=== PATIENT | female | born 1990 | race Two or more races ===

== ENCOUNTER 2016-11-08 14:04 | Inpatient (IN) | payer MEDICAID, OTHER ==
[~2016-11-08] VITALS: Ht 180.3 cm; Wt 124.5 kg
[2016-11-08 14:54] LABS: DAU SCREEN DISCLAIMER
[2016-11-08] MEDS ORDERED: OXYTOCIN 30U/ 0.9% NaCL 500ML 500 ML IV ONE (15:36)
[2016-11-08] MEDS ORDERED: OXYTOCIN 30U/ 0.9% NaCL 500ML 500 ML IV PRN (15:36)
[2016-11-08] MEDS: D5%-LACTATED RINGERS 1,000 ML IV SCH ×2 (15:36→23:36)
[2016-11-08] MEDS ORDERED: LIDOCAINE 1%, 20ML ONE (15:44)
[2016-11-08] MEDS ORDERED: OXYTOCIN 30U/ 0.9% NaCL 500ML 500 ML ONE (15:44)
[2016-11-08] MEDS ORDERED: MISOPROSTOL 200 MCG TABLET ONE (15:44)
[2016-11-08] MEDS ORDERED: NEWBORN KIT ONE (15:44)
[2016-11-08] MEDS: LACTATED RINGERS 1,000 ML IV SCH ×3 (15:58→23:57)
[2016-11-08] MEDS ORDERED: FENTANYL PF 100 MCG/2ML IV PRN (16:00)
[2016-11-08] MEDS ORDERED: METOCLOPRAMIDE 5 MG/ML, 2ML IVPush PRN (16:00)
[2016-11-08] MEDS ORDERED: TERBUTALINE 1 MG/ML, 1ML IVPush PRN (16:00)
[2016-11-08] MEDS ORDERED: SODIUM CITRATE/CITRIC ACID 30 ML UDC PO PRN (16:00)
[2016-11-08] MEDS ORDERED: ONDANSETRON 2MG/ML, 2ML IVPush PRN (16:00)
[2016-11-08 16:12] LABS: HEMATOCRIT 39.6 % (34.6-47.8); WHITE BLOOD COUNT 10.3 x10^3/uL (3.4-10)
[2016-11-08] MEDS ORDERED: TERBUTALINE 1 MG/ML, 1ML ONE (16:13)
[2016-11-08] MEDS ORDERED: MISOPROSTOL 25 MCG TABLET ONE (17:08)
[2016-11-08] MEDS ORDERED: MISOPROSTOL 25 MCG TABLET VG PRN (17:30)
[2016-11-08] MEDS ORDERED: PREN1TAB69 PO (18:16)
[2016-11-08] MEDS ORDERED: FENTANYL PF 100 MCG/2ML ONE ×2 (21:42→23:18)
[2016-11-08] MEDS: FENTANYL PF 100 MCG/2ML IVPush PRN ×2 (21:50→23:20)
[2016-11-08] MEDS ORDERED: FENTANYL/BUPIV./NS/PF 250 ML EPIDCONT ONE (23:54)
[2016-11-08] MEDS ORDERED: BUPIVACAINE/PF 0.25% ONE (23:54)
[2016-11-08] MEDS ORDERED: FENTANYL/BUPIV./NS/PF 250 ML EPIDCONT SCH (23:57)
[2016-11-09] MEDS ORDERED: EPHEDRINE 50 MG/ML, 1ML IVPush PRN
[2016-11-09] MEDS ORDERED: LACTATED RINGERS 1,000 ML IVBOLUS PRN
[2016-11-09] MEDS ORDERED: NALOXONE 0.4 MG/ML, 1ML IVPush PRN
[2016-11-09] MEDS: LACTATED RINGERS 1,000 ML IV SCH ×6 (00:31→23:57)
[2016-11-09] MEDS: VANCOMYCIN PMX 1GM/200ML 200 ML IVPB SCH ×3 (04:42→16:31)
[2016-11-09] MEDS: D5%-LACTATED RINGERS 1,000 ML IV SCH ×3 (07:36→23:36)
[2016-11-09] MEDS ORDERED: OXYTOCIN 30U/ 0.9% NaCL 500ML 500 ML IV PRN (10:15)
[2016-11-09] MEDS ORDERED: LACTATED RINGERS 1,000 ML INTUTE PRN (16:00)
[2016-11-09] MEDS ORDERED: FENTANYL/BUPIV./NS/PF 250 ML EPIDCONT ONE (17:46)
[2016-11-09] MEDS ORDERED: METHYLERGONOVINE 0.2 MG/ML IM ONE (20:17)
[2016-11-09] MEDS ORDERED: OXYTOCIN 30U/ 0.9% NaCL 500ML 500 ML ONE (20:40)
[2016-11-09] MEDS: OXYTOCIN 30U/ 0.9% NaCL 500ML 500 ML IV SCH (21:17)
[2016-11-09] MEDS ORDERED: ONDANSETRON 2MG/ML, 2ML IV PRN (21:30)
[2016-11-09] MEDS ORDERED: METHYLERGONOVINE 0.2 MG/ML IM PRN (21:30)
[2016-11-09] MEDS ORDERED: MISOPROSTOL 200 MCG TABLET PR PRN (21:30)
[2016-11-09] MEDS: IBUPROFEN 600 MG TABLET PO PRN (23:35)
[2016-11-10] MEDS: HYDROcodone/APAP 5/325 TABLET PO PRN ×5 (01:23→20:38)
[2016-11-10 01:24] VITALS: BP 115/62
[2016-11-10 04:59] LABS: HEMATOCRIT 31.4 % (34.6-47.8); HEMOGLOBIN 10.3 g/dL (11.7-16.4); WHITE BLOOD COUNT 11.9 x10^3/uL (3.4-10)
[2016-11-10] MEDS: IBUPROFEN 600 MG TABLET PO PRN ×3 (06:03→20:38)
[2016-11-10 06:05] VITALS: BP 107/60
[2016-11-10] MEDS: OXYTOCIN 30U/ 0.9% NaCL 500ML 500 ML IV SCH (07:17)
[2016-11-10 08:05] VITALS: BP 119/74
[2016-11-10] MEDS: DOCUSATE 100 MG CAPSULE PO SCH ×3 (08:19→21:44)
[2016-11-10] MEDS: PRENATAL VIT/IRON/FA 1 EACH TABLET PO SCH (08:19)
[2016-11-10 12:00] VITALS: BP 123/80
[2016-11-10 16:30] VITALS: BP 106/66
[2016-11-10 20:49] VITALS: BP 118/74
[2016-11-11] MEDS: HYDROcodone/APAP 5/325 TABLET PO PRN ×4 (00:59→18:23)
[2016-11-11 07:30] VITALS: BP 121/80
[2016-11-11] MEDS: DOCUSATE 100 MG CAPSULE PO SCH (08:04)
[2016-11-11] MEDS: PRENATAL VIT/IRON/FA 1 EACH TABLET PO SCH (08:04)
[2016-11-11] MEDS: IBUPROFEN 600 MG TABLET PO PRN ×2 (08:04→20:47)
[2016-11-11] MEDS ORDERED: IBUP-1 PO (10:55)
[2016-11-11] MEDS ORDERED: HYDR-883 PO (10:56)
[2016-11-11] MEDS ORDERED: DOCU-30 PO (10:57)
[2016-11-11] MEDS ORDERED: DIPHENHYDRAMINE 25 MG CAPSULE PO ONE (16:30)
[2016-11-11 21:00] VITALS: BP 109/72
[2016-11-12] MEDS: DOCUSATE 100 MG CAPSULE PO SCH ×2 (00:38→10:47)
[2016-11-12] MEDS: HYDROcodone/APAP 5/325 TABLET PO PRN ×3 (00:39→10:48)
[2016-11-12 02:03] LABS: PATH.CAST-FLAG NOT PRESENT; SPERM-FLAG NOT PRESENT; SRC-FLAG NOT PRESENT; XTAL-FLAG NOT PRESENT; YLC-FLAG NOT PRESENT
[2016-11-12] MEDS: IBUPROFEN 600 MG TABLET PO PRN ×2 (04:51→10:48)
[2016-11-12 07:10] VITALS: BP 115/75
[2016-11-12] MEDS: PRENATAL VIT/IRON/FA 1 EACH TABLET PO SCH (10:47)
== END 2016-11-12 13:01 | disposition home or self-care (01) | DRG 774 ==
LOC: LDOP 14:04 → LDIP 15:36 → 2NW 11-09 22:37
PROVIDERS: ADMIT Student in an Organized Health Care Education/Training Program; ATTEND Student in an Organized Health Care Education/Training Program
PROC: 10E0XZZ Delivery of Products of Conception, External Approach (ICD-10-PCS; principal; 2016-11-09)
PROC: 0KQM0ZZ Repair Perineum Muscle, Open Approach (ICD-10-PCS; 2016-11-09)
PROC: 10907ZC Drainage of Amniotic Fluid, Therapeutic from Products of Conception, Via Natural or Artificial Opening (ICD-10-PCS; 2016-11-09)
PROC: 3E0S3CZ (ICD-10-PCS; 2016-11-09)
PROC: 00HU33Z Insertion of Infusion Device into Spinal Canal, Percutaneous Approach (ICD-10-PCS; 2016-11-09)
DX: O99.824 Streptococcus B carrier state complicating childbirth (principal); O72.1 Other immediate postpartum hemorrhage; E66.9 Obesity, unspecified; O48.0 Post-term pregnancy; O48.1 Prolonged pregnancy; O69.1XX0 Labor and delivery complicated by cord around neck, with compression, not applicable or unspecified; O70.1 Second degree perineal laceration during delivery; O76 Abnormality in fetal heart rate and rhythm complicating labor and delivery; O99.214 Obesity complicating childbirth; Z88.0 Allergy status to penicillin; Z37.0 Single live birth; Z68.38 Body mass index [BMI] 38.0-38.9, adult; Z3A.41 41 weeks gestation of pregnancy; Z87.730 Personal history of (corrected) cleft lip and palate
CPT/HCPCS: 36415; 76815; 80307; 81001; 85025; 86850; 86900; 87077; 87086; 87186; 89060; J3010; J3370; J3490; J2590; J7120; Q0114; Q0163

== ENCOUNTER 2016-11-16 22:08 | Emergency (ER) | payer MEDICAID ==
[~2016-11-16] VITALS: Ht 177.8 cm; Wt 124.9 kg
[~2016-11-16 22:08] MED LIST: DOCU-131 PO; HYDR-883 PO; IBUP-11 PO; PREN1TAB69 PO
[2016-11-16] MEDS ORDERED: SODIUM CHLORIDE 0.9% 1,000ML IVBOLUS ONE (23:00)
[2016-11-16] MEDS ORDERED: ONDANSETRON 2MG/ML, 2ML IVPush ONE (23:00)
[2016-11-16] MEDS ORDERED: KETOROLAC 30 MG/1 ML IVPush ONE (23:00)
[2016-11-16] MEDS ORDERED: MORPHINE SULFATE 4 MG/ML, 1ML IVPush PRN (23:00)
[2016-11-16] MEDS ORDERED: SODIUM CHLORIDE FLUSH 10ML SYR IVF ONE (23:00)
[2016-11-16 23:43] LABS: HEMATOCRIT 34.4 % (34.6-47.8); HEMOGLOBIN 11.1 g/dL (11.7-16.4); WHITE BLOOD COUNT 7.2 x10^3/uL (3.4-10)
[2016-11-16 23:53] LABS: BLOOD UREA NITROGEN 14 mg/dL (7-18)
[2016-11-16 23:57] LABS: ASPARTATE AMINO TRANSFERASE 44 U/L (15-37)
[2016-11-17] MEDS ORDERED: CEFTRIAXONE PMX 1GM/50ML 50 ML IV ONE (01:30)
[2016-11-17 01:59] VITALS: BP 120/79
== END 2016-11-17 02:02 | disposition home or self-care (01) ==
LOC: ED 23:59
DX: N30.90 Cystitis, unspecified without hematuria (principal); Z88.0 Allergy status to penicillin
CPT/HCPCS: 36415; 74176; 80053; 81001; 83690; 85025; 87086; 99285

== ENCOUNTER 2016-11-28 18:33 | Emergency (ER) | payer MEDICAID ==
[~2016-11-28] VITALS: Ht 175.3 cm; Wt 120.2 kg
[2016-11-28 18:35] VITALS: BP 121/88
== END 2016-11-28 19:29 | disposition home or self-care (01) ==
LOC: ED 19:20
DX: L50.9 Urticaria, unspecified (principal)
CPT/HCPCS: 99283

== ENCOUNTER 2017-05-08 10:25 | Emergency (ER) | payer MEDICAID ==
[~2017-05-08] VITALS: Ht 175.3 cm; Wt 123.4 kg
[2017-05-08 11:23] VITALS: BP 119/62
[2017-05-08 11:30] LABS: BASOPHILS # (AUTO) 0.03 x10^3/uL (0-0.1); BASOPHILS % (AUTO) 1 % (0-1); EOSINOPHILS # (AUTO) 0.08 x10^3/uL (0-0.4); EOSINOPHILS % (AUTO) 2 % (1-7); LYMPHOCYTES % (AUTO) 42 % (22-44); MD NO; MEAN CORPUSCULAR HGB CONC 33.5 g/dL (32.4-35.8); MEAN CORPUSCULAR VOLUME 77.5 fL (80-100); MEAN PLATELET VOLUME 8.5 fL (7.4-10.4); MONOCYTES # (AUTO) 0.37 x10^3/uL (0.2-0.8); MONOCYTES % (AUTO) 9 % (2-9); NEUTROPHILS # (AUTO) 2.03 x10^3/uL (1.8-6.8); NEUTROPHILS % (AUTO) 47 % (42-75); PLATELET COUNT 242 x10^3/uL (130-400); RED BLOOD COUNT 5.18 x10^6/uL (3.82-5.3); RED CELL DISTRIBUTION WIDTH 16.2 % (9.6-15.2)
[2017-05-08 11:40] LABS: ALANINE AMINOTRANSFERASE 66 U/L (12-78); ALBUMIN 3.3 g/dL (3.4-5.0); ANION GAP 7 mmol/L (5-15); CALCIUM 7.9 mg/dL (8.5-10.1); CHLORIDE 111 mmol/L (98-107); CREATININE 0.71 mg/dL (0.55-1.02)
[2017-05-08 11:44] LABS: ALKALINE PHOSPHATASE 52 U/L (45-117); BILIRUBIN,TOTAL 0.3 mg/dL (0.2-1.0); TOTAL PROTEIN 7.1 g/dL (6.4-8.2)
[2017-05-08 12:10] LABS: CULTURE INDICATED? NO; MICROSCOPIC NOT IND
== END 2017-05-08 12:43 | disposition home or self-care (01) ==
LOC: ED 12:10
DX: K29.00 Acute gastritis without bleeding (principal); R10.11 Right upper quadrant pain
CPT/HCPCS: 36415; 76700; 80053; 81003; 83690; 84703; 85025; 99285